=== PATIENT | female | born 1955 | race Caucasian/White ===

== ENCOUNTER → 2017-03-05 | Outpatient (CLI) | payer BC ==
[~2017-03-05] MED LIST: ASPI81TA28 PO; B CO PO; CALCTAB5 PO; CHOL2000 PO; COEN1CAP17 PO; FLAX1CAP11 PO; GLC/500 PO; GLUCOSAMINE; LISI-729 PO; MAGN400T6 PO; MELA1TAB5 PO; METF-384 PO; MILK1POW PO; NIAC500T11 PO; OMEG10007 PO; PRMVC; REDCAP2 PO; VITA400C28 PO; [UNRECOGNIZED DRUG - CODE] PO
--- NOTE | 2017-03-05 14:15 | MAMMOGRAPHY REPORT ---
BILATERAL DIGITAL SCREENING MAMMOGRAM TOMOSYNTHESIS WITH CAD: 03/05/2017 CLINICAL HISTORY: Routine screening. Patient has no complaints. TECHNIQUE: Breast tomosynthesis in addition to standard 2D mammography was performed. Current study was also evaluated with a Computer Aided Detection (CAD) system. COMPARISON: Comparison is made to exams dated: 03/01/2016 mammogram, 01/12/2015 mammogram, 01/06/2014 m ammogram, 01/03/2013 mammogram, 01/03/2012 mammogram, and 12/27/2010 mammogram - [facility] er. BREAST COMPOSITION: There are scattered areas of fibroglandular density in both breasts. FINDINGS: There are mild vascular calcifications in both breasts. No suspicious mass, architectural distortion or cluster of suspicious microcalcifications is seen. IMPRESSION: ACR BI-RADS CATEGORY 2: BENIGN There is no mammographic evidence of malignancy. A 1 year screening mammogram is recommended. The pa tient will receive written notification of the results. Approximately 10% of breast cancers are not detected with mammography. A negative mammographic report should not delay biopsy if a clinically suggestive mass is present. Greer Mead M.D. ay/:03/05/2017 08:36:16 Dance Entertainer: Elle INGRAM(Adrian)(Oneil), [facility] letter sent: Normal 1/2 BI-RADS Code: ACR BI-RADS Category 2: Benign
== END | disposition home or self-care (01) ==
LOC: C.MAMM 07:26
PROVIDERS: ATTEND Nurse Practitioner
DX: Z12.31 Encounter for screening mammogram for malignant neoplasm of breast (principal)

== ENCOUNTER 2021-07-10 11:39 | Inpatient (IN) ==
[2021-07-10] MEDS ORDERED: SODIUM CHLORIDE 0.9% 500 ML IV SCH (12:45)
[2021-07-10] MEDS ORDERED: SODIUM CHLORIDE 0.9% 1000ML 1,000 ML IV SCH (12:45)
[2021-07-10 12:50] LABS: Basophils # (auto) 0.01 K/uL (0-0.2); Basophils % (auto) 0.1 %; Eosinophils # (auto) 0.09 K/uL (0-0.5); Eosinophils % (auto) 0.5 %; Hematocrit (blood only) 53.5 % (37-47); Hemoglobin 17.9 g/dL (12.0-16.0); Immature Granulocytes # (auto) 0.05 K/uL (0.00-0.02); Immature Granulocytes % (auto) 0.3 %; Lymphocytes # (auto) 1.37 K/uL (1.2-3.4); Mean Corpuscular Hemoglobin 31.7 pg (25-34); Mean Corpuscular Hgb Conc 33.5 g/dL (32-36); Mean Corpuscular Volume 94.7 fL (80-100); Mean Platelet Volume 11.2 fL (7.4-10.4); Monocytes # (auto) 0.41 K/uL (0.11-0.59); Monocytes % (auto) 2.4 %; Neutrophils # (auto) 15.27 K/uL (1.4-6.5); Neutrophils % (auto) 88.7 %; Platelet Count 301 K/uL (130-400); RDW Coefficient of Variation 14.7 % (11.5-14.5); Red Blood Count 5.65 M/uL (4.2-5.4)
--- NOTE | 2021-07-10 13:18 | XRay Report ---
XR chest 1V portable CLINICAL HISTORY: syncope TECHNIQUE: Single frontal radiograph of the chest was obtained. Comparison: None available at the time of this dictation. FINDINGS: No lines and tubes are seen. Calcified aortic knob is seen. The lungs are clear. No evidence of pleur al effusion or pneumothorax. IMPRESSION: No acute chest disease. ACT 112: Negative or not required by law. Electronically signed by: Gregorio Dutta M.D. 07/10/2021 1:17 PM
[2021-07-10 13:23] LABS: Alanine Aminotransferase 19 U/L (7-52); Albumin Globulin Ratio 1.6 (0.9-2); Albumin Level 3.9 gm/dl (3.4-5.0); Alkaline Phosphatase 48 U/L (34-104); BUN Creatinine Ratio 12.6 (10-20); Bilirubin,Total 0.5 mg/dl (0.2-1.0); Blood Urea Nitrogen 15 mg/dl (6-23); Calcium 9.8 mg/dl (8.5-10.1); Carbon Dioxide 25 mmol/L (21-32); Chloride 104 mmol/L (98-107); Creatinine Clr Calc Pharmacy 57.4 ml/min; Est GFR (African American) 56.3 ml/min; Est GFR (Non-African American) 48.5 ml/min; Globulin 2.5 gm/dl (2.5-4.0); Glucose 184 mg/dl (70-99(Fasting)); Total Protein 6.4 gm/dl (6.0-8.3); Troponin I 0.04 ng/ml (0-0.04)
--- NOTE | 2021-07-10 13:39 | CT Scan Report ---
CT head/brain wo con CLINICAL HISTORY: syncope, fall Technique: Contiguous axial CT images of the head were acquired from the base of the skull to the mathew lino without intravenous contrast administration. Images were viewed in brain, subdural and [facility]. Automated dose lowering techniques and/or adjustment according to patient size were utilized for this exam. Comparison: None available at the time of this dictation. Findings: The ventricles, basal cisterns, and cerebral sulci are normal. There is no acute intracranial hemorrh age or evidence of acute territorial infarction. Neither mass effect, shift of the midline structures , nor abnormal extra-axial fluid collections are shown. Imaged portions of the paranasal sinuses and mastoid air cells are clear. The orbits appear normal. There are no acute fractures of the calvaria or scalp swelling. Impression: No acute intracranial hemorrhage, no evidence of acute territorial infarction or other acute intracra nial disease process. ACT 112: Negative or not required by law. Electronically signed by: Gregorio Dutta M.D. 07/10/2021 1:37 PM
[2021-07-10] MEDS ORDERED: FAMOTIDINE 20MG/5ML IV PUSH IV STA (13:43)
[2021-07-10] MEDS ORDERED: dexAMETHasone**PF** 10 MG/ML VIAL IV ONE (13:43)
[2021-07-10 14:47] LABS: Aspartate Aminotransferase 14 U/L (13-39); C Reactive Protein < 0.50 mg/dl (0-0.5); Magnesium 1.5 mg/dl (1.7-2.4); Potassium 3.5 mmol/L (3.5-5.1); Sodium 139 mmol/L (136-145)
[2021-07-10] MEDS ORDERED: cefTRIAXone SODIUM 2,000 MG/70 ML BAG IV STA (15:56)
[2021-07-10 16:00] LABS: Appearance Urine Cloudy (Clear); Bacteria Urine Automated Negative (Negative); Bilirubin Urine Negative (Negative); Blood Urine Negative (Negative); Color Urine Dark Yellow; Epithelial Cell Urine Auto >30 /lpf (0-5); Glucose Urine UA Negative (Negative); Ketones Urine Trace (Negative); Leukocyte Esterase Urine Negative (Negative); Nitrite Urine Negative (Negative); Protein Urine 2+ (Negative); Specific Gravity Urine 1.014 (1.000-1.030); Urobilinogen Urine Negative (Negative); pH Urine 6.5 (4.5-7.5)
[2021-07-10 16:01] LABS: D Dimer 19870 ug/L FEU (0-500)
[2021-07-10 16:14] LABS: Calcium Oxalate Crystals Urine Present (None Prsent); Renal Epithelial Cells Urine 0-5 /lpf (0-5)
[2021-07-10] MEDS ORDERED: OPTIRAY 320 125ml IV ONE (17:23)
[2021-07-10] MEDS: MAGNESIUM SULFATE / D5W 1 GM/100 ML BAG IV SCH ×2 (17:29→19:45)
--- NOTE | 2021-07-10 17:42 | CT Scan Report ---
CT angio chest PE protocol CLINICAL HISTORY: syncope, +dimer TECHNIQUE: Multidetector row helical CT of the chest was performed. Coronal and sagittal reformations were obtained. Coronal and sagittal MIPS were obtained from the axial data set and were submitted fo r review. Automated dose lowering techniques and/or adjustment according to patient size were utiliz ed for this exam. Comparison: Comparison is made to chest one view 07/10/2021 FINDINGS: Lungs and pleura: Atelectasis versus scarring is seen in the dependent portions of the lungs. Heart and pericardium: Heart size is normal. No pericardial effusion. Vessels: No evidence of pulmonary embolism. Mild atherosclerotic disease is seen. Mediastinum and sherwin: Esophageal thickening is seen. Chest wall and lower neck: Unremarkable. Abdomen: A hiatal hernia is seen. Bones: Degenerative changes in the thoracic spine. IMPRESSION: 1. No evidence of pulmonary embolism. 2. Esophageal thickening is seen, correlate clinically for esophagitis. ACT 112: Negative or not required by law. Electronically signed by: Gregorio Dutta M.D. 07/10/2021 5:41 PM
--- NOTE | 2021-07-10 17:51 | Emergency Department Note ---
Impression & Plan Syncope and collapse, Acute hypotension, SIRS (systemic inflammatory response syndrome), Elevated d-dimer, Leukocytosis ED Provider Note INFORMANT: Patient and family ED PROVIDER(S): Andrade Chapman MD CHIEF COMPLAINT: Syncope PLAN: Disposition: Admitted Condition: Guarded Outpatient prescription management: none Referral: None MEDICAL DECISION MAKING: The patient presented because of a syncopal episode. She was hypotensive. She also has flushed skin. Allergic history was not really supported. She did receive Benadryl prehospital which helped some with itching but she still had the erythema of her skin. It did not appear to be cellulitic. She had no desquamation. She was hydrated with normal saline. Blood work was obtained. Chest x-ray was unremarkable. Head CT was unremarkable. Urinalysis was not overly convincing for infection. The patient had a significant leukocytosis and an elevated procalcitonin. This did raise concerns for infection. She has no headache, spinal pain, abdominal pain, back pain, skin changes, complaints or other issues. Additional blood work is ordered. Patient's ECG and cardiac monitoring showed ectopy but no ischemia or dysrhythmia. Given the findings that were concerning for SIRS blood cultures and urine culture were ordered. The patient was given an empiric dose of Rocephin. A D-dimer was performed and was significantly elevated. The patient was not having any chest pain or shortness of breath however a CT scan of the chest was performed in light of the tachycardia, hypotension or syncope. This was negative for thromboembolic disease. Reassessment the patient's vital signs did improve. Further management and evaluation in the hospital will be necessary. Consultation was placed with the [facility] service. Patient was evaluated in the ER and admitted for further management. Triage Nursing notes reviewed and agree them. Vital Signs: reviewed and remarkable for hypotension and tachycardia Differential diagnosis: Vasovagal event, dehydration, infection, hypoglycemia, electrolyte abnormalities, cardiac sources, intracerebral event, pulmonary embolism, seizure, toxicologic, neurologic, as well as other pathologies. Diagnostics interpreted by me: ECG: Twelve-lead ECG reveals sinus tachycardia with PVCs at 113 bpm. Bilateral enlargement present. No ST elevation or depression. No pericarditis. Normal axis. Cardiac Monitoring: Cardiac monitoring ordered by me: The patient was placed on continuous cardiac monitoring and observed. It revealed a sinus tachycardic rhythm at 104 beats per minute without ectopy or evidence of dysrhythmia. Imaging studies: Chest x-ray and CT scans as above. HPI: The patient is a 65 year old female who presents to the Emergency Room with complaints of syncope. This started this morning and is described as a minute long event per the . Patient states that over the last several days she has had transient episodes of dizziness when she woke up in the morning but that was resolved. Today did not resolve. She was not feeling well. She had a syncopal episode. She did have loss of control of her bowel and bladder. states no seizure-like activity. She was feeling itchy afterwards. The patient had redness of the skin. The patient also notes the following associated symptoms, generalized weakness and fatigue. The patient has been given 50 mg of Benadryl by EMSrelieving factors. Current pain is rated as 0/10. No prior history of the same. No recent travel. No sick contacts. Pt denies headache, fevers, chills, sore throat, sinus congestion, diaphoresis, visual changes, neck pain, chest pain, breathing difficulties, nausea, vomiting, abdominal pain, back pain, melena, hematochezia, urinary symptoms, numbness, lymphadenopathy, rash, or other complaints. ROS: See above HPI for pertinent positives & negatives. A total of 10 systems reviewed and were otherwise negative. PAST MEDICAL HISTORY:See Below , diabetes PAST SURGICAL HISTORY:See Below, FAMILY HISTORY:See Below SOCIAL HISTORY:See Below, HOME MEDICATIONS:See Below ALLERGIES:See Below VITALS:See Below PHYSICAL EXAMINATION: GENERAL: Awake, alert, uncomfortable-appearing, in no distress HENT: Normocephalic, atraumatic. Oropharynx unremarkable. EYES: Normal conjunctiva. Sclera non-icteric. NECK: Inspection normal. Non-tender. Supple. No nuchal rigidity. FROM. No masses. RESPIRATORY: Clear to auscultation. No wheezes. No rales. Normal respiratory effort. CARDIAC: Tachycardic rate. Normal rhythm. No murmurs. No rubs. Extremities warm and well perfused. Pulses equal. No JVD. GI: Soft, non-distended. No tenderness to palpation. No rebound or guarding. No masses. RECTAL: Deferred. MUSCULOSKELETAL: Atraumatic. Chest examination reveals no tenderness. The back is symmetrical on inspection without obvious abnormality. There is no CVA tenderness to palpation. No joint edema. LOWER EXTREMITIES: Calves are equal size bilaterally and non-tender. No edema. No discoloration. NEURO: Normal sensorium. No sensory or motor deficits noted. SKIN: Diffuse erythroderma of the trunk and proximal upper extremities. No petechiae, purpura, urticaria, desquamation, or jaundice noted. CRITICAL CARE: I have personally spent greater than 45 minutes of critical care time in the direct management of this patient. This includes bedside care, interpretation of diagnostic studies, and testing, discussion with consultants, patient, and family members, and other required patient management activities. These minutes are in excess of all separately billable procedures. Andrade Chapman MD Past Med/Surg History Medical History (Updated 07/10/21 @ 18:25 by RICKIE Vincent) Arthralgia BMI 36.0-36.9,adult Depression Fatigue Hx of renal calculi Knee pain, right Obesity Symptomatic PVCs Surgical History Hx of tubal ligation Family History Brother Myocardial infarction Denies family history of Ovarian cancer Prostate cancer Breast cancer Colorectal cancer Social History Smoking Status: Former smoker Second Hand Exposure: No; Hx Alcohol Use: No Hx Substance Use: No marital status: Single Current Living Situation: Significant Other current occupational status: employed Feels Safe at Home: Yes caffeine: Yes Dental Care, Regularly: Yes Physical Activity Frequency: 5-6 Times per Week Seatbelt Use: always Sunscreen Use: Yes Allergies Allergies Allergy/AdvReac Type Severity Reaction Status Date / Time No Known Allergies AdvReac NONE Unverified 05/09/21 08:18 Home Meds Home Medications Medication Instructions Recorded Confirmed aspirin 81 mg tablet 81 mg PO DAILY tab 04/14/19 07/10/21 cholecalciferol (vitamin D3) 50 2,000 units PO DAILY tab 04/14/19 07/10/21 mcg (2,000 unit) tablet coenzyme Q10 100 mg capsule 100 mg PO DAILY cap 04/14/19 07/10/21 omega-3 acid ethyl esters 1 gram 1 cap PO BID cap 04/14/19 07/10/21 capsule vitamin B complex 1 cap PO DAILY 04/14/19 07/10/21 Previous Rx's Medication Instructions Recorded diltiazem HCl 30 mg tablet 30 mg PO BID #180 tab 08/12/20 metformin 500 mg tablet See Rx Instructions .ROUTE 03/02/21 .COMPLEX #270 tablet lisinopril 10 mg tablet 10 mg PO DAILY #90 tab 03/14/21 atorvastatin 10 mg tablet 10 mg PO DAILY #90 tab 04/07/21 bupropion HCl 100 mg tablet,12 hr 100 mg PO DAILY #90 ea 05/09/21 sustained-release Results & Data (ED) Vital Signs Vital Signs - 24 hr 07/10/21 11:47 07/10/21 12:16 07/10/21 12:50 Temperature 36.8 C Temperature Source Oral Pulse Rate 128 H 116 H Pulse Rate [Apical] 120 H Pulse Rhythm Regular Pulse Rhythm [Apical] Regular Pulse Strength [Apical] Normal Respiratory Rate 18 18 16 Respiratory Effort / Characteristics Non-Labored Respiratory Depth Normal Respiratory Pattern Regular Blood Pressure 110/74 Blood Pressure [Left Arm] 110/74 Blood Pressure Mean 86 Blood Pressure Mean [Left Arm] 86 Blood Pressure Position [Left Arm] Lying Pulse Oximetry 98 96 94 Oxygen Delivery Method Room Air Room Air Room Air Oxygen Flow Rate 0 Sepsis Recent Fever Within 48 Hours No Sepsis New/Unexplained Change in Mental Status No Sepsis Action Taken by Nursing No Action Required 07/10/21 14:00 07/10/21 14:44 07/10/21 16:15 Temperature Temperature Source Pulse Rate Pulse Rate [Apical] 103 H 109 H 100 H Pulse Rhythm Pulse Rhythm [Apical] Regular Regular Regular Pulse Strength [Apical] Normal Normal Normal Respiratory Rate 18 18 18 Respiratory Effort / Characteristics Non-Labored Non-Labored Non-Labored Respiratory Depth Normal Normal Normal Respiratory Pattern Regular Regular Regular Blood Pressure Blood Pressure [Left Arm] 94/68 L 108/80 107/85 Blood Pressure Mean Blood Pressure Mean [Left Arm] 76 89 92 Blood Pressure Position [Left Arm] Lying Lying Lying Pulse Oximetry 95 94 96 Oxygen Delivery Method Room Air Room Air Room Air Oxygen Flow Rate Sepsis Recent Fever Within 48 Hours Sepsis New/Unexplained Change in Mental Status Sepsis Action Taken by Nursing 07/10/21 18:00 Temperature Temperature Source Pulse Rate Pulse Rate [Apical] 90 Pulse Rhythm Pulse Rhythm [Apical] Regular Pulse Strength [Apical] Normal Respiratory Rate 16 Respiratory Effort / Characteristics Non-Labored Respiratory Depth Normal Respiratory Pattern Regular Blood Pressure Blood Pressure [Left Arm] 114/73 Blood Pressure Mean Blood Pressure Mean [Left Arm] 86 Blood Pressure Position [Left Arm] Lying Pulse Oximetry 94 Oxygen Delivery Method Room Air Oxygen Flow Rate Sepsis Recent Fever Within 48 Hours Sepsis New/Unexplained Change in Mental Status Sepsis Action Taken by Nursing Laboratory Data Result diagrams: 07/10/21 12:19 07/10/21 18:14 Lab Results 07/10/21 07/10/21 07/10/21 Range/Units 12:19 12:19 12:19 WBC 17.20 H (4.8-10.8) K/uL RBC 5.65 H (4.2-5.4) M/uL Hgb 17.9 H (12.0-16.0) g/dL Hct 53.5 H (37-47) % MCV 94.7 (80-100) fL MCH 31.7 (25-34) pg MCHC 33.5 (32-36) g/dL RDW Std Deviation 51.0 H (36.4-46.3) fL RDW Coeff of Rick 14.7 H (11.5-14.5) % Plt Count 301 (130-400) K/uL MPV 11.2 H (7.4-10.4) fL Immature Gran % (Auto) 0.3 % Neut % (Auto) 88.7 % Lymph % (Auto) 8.0 % Phelps % (Auto) 2.4 % Eos % (Auto) 0.5 % Baso % (Auto) 0.1 % Neut # (Auto) 15.27 H (1.4-6.5) K/uL Lymph # (Auto) 1.37 (1.2-3.4) K/uL Phelps # (Auto) 0.41 (0.11-0.59) K/uL Eos # (Auto) 0.09 (0-0.5) K/uL Baso # (Auto) 0.01 (0-0.2) K/uL Immature Gran # (Auto) 0.05 H (0.00-0.02) K/uL ESR (0-30) mm/hr D-Dimer (0-500) ug/L FEU Sodium (136-145) mmol/L Potassium (3.5-5.1) mmol/L Chloride 104 (98-107) mmol/L Carbon Dioxide 25 (21-32) mmol/L Anion Gap TNP BUN 15 (6-23) mg/dl Creatinine 1.19 (0.6-1.2) mg/dl Est Cr Clr Drug Dosing 57.4 ml/min Est GFR ( Amer) 56.3 ml/min Est GFR (Non-Af Amer) 48.5 ml/min BUN/Creatinine Ratio 12.6 (10-20) Glucose 184 H (70-99(Fasting)) mg/dl Lactate (0.4-2.0) mmol/L Calcium 9.8 (8.5-10.1) mg/dl Magnesium (1.7-2.4) mg/dl Total Bilirubin 0.5 (0.2-1.0) mg/dl AST (13-39) U/L ALT 19 (7-52) U/L Alkaline Phosphatase 48 (34-104) U/L Troponin I 0.04 (0-0.04) ng/ml C-Reactive Protein (0-0.5) mg/dl Total Protein 6.4 (6.0-8.3) gm/dl Albumin 3.9 (3.4-5.0) gm/dl Globulin 2.5 (2.5-4.0) gm/dl Albumin/Globulin Ratio 1.6 (0.9-2) Procalcitonin (0-0.5) ng/ml TSH 4.178 (0.300-4.500) uIu/ml Urine Color Urine Appearance (Clear) Urine pH (4.5-7.5) Ur Specific W[place]rop (1.000-1.030) Urine Protein (Negative) Urine Glucose (UA) (Negative) Urine Ketones (Negative) Urine Blood (Negative) Urine Nitrite (Negative) Urine Bilirubin (Negative) Urine Urobilinogen (Negative) Ur Leukocyte Esterase (Negative) Urine WBC (Auto) (0-5) /hpf Urine RBC (Auto) (0-4) /hpf U Hyaline Cast (Auto) (0-5) /lpf U Epithel Cells (Auto) (0-5) /lpf Urine Bacteria (Auto) (Negative) Ur Renal Epithelial Cell (0-5) /lpf Urine Crystals Calcium Oxalate Crystal (None Prsent) Granular Casts (0) /lpf SARS-CoV-2, RNA, NAAT (NEGATIVE) 07/10/21 07/10/21 07/10/21 Range/Units 12:19 12:19 14:16 WBC (4.8-10.8) K/uL RBC (4.2-5.4) M/uL Hgb (12.0-16.0) g/dL Hct (37-47) % MCV (80-100) fL MCH (25-34) pg MCHC (32-36) g/dL RDW Std Deviation (36.4-46.3) fL RDW Coeff of Rick (11.5-14.5) % Plt Count (130-400) K/uL MPV (7.4-10.4) fL Immature Gran % (Auto) % Neut % (Auto) % Lymph % (Auto) % Phelps % (Auto) % Eos % (Auto) % Baso % (Auto) % Neut # (Auto) (1.4-6.5) K/uL Lymph # (Auto) (1.2-3.4) K/uL Phelps # (Auto) (0.11-0.59) K/uL Eos # (Auto) (0-0.5) K/uL Baso # (Auto) (0-0.2) K/uL Immature Gran # (Auto) (0.00-0.02) K/uL ESR 11 (0-30) mm/hr D-Dimer 35536 H* (0-500) ug/L FEU Sodium 139 (136-145) mmol/L Potassium 3.5 (3.5-5.1) mmol/L Chloride (98-107) mmol/L Carbon Dioxide (21-32) mmol/L Anion Gap BUN (6-23) mg/dl Creatinine (0.6-1.2) mg/dl Est Cr Clr Drug Dosing ml/min Est GFR ( Amer) ml/min Est GFR (Non-Af Amer) ml/min BUN/Creatinine Ratio (10-20) Glucose (70-99(Fasting)) mg/dl Lactate (0.4-2.0) mmol/L Calcium (8.5-10.1) mg/dl Magnesium 1.5 L (1.7-2.4) mg/dl Total Bilirubin (0.2-1.0) mg/dl AST 14 (13-39) U/L ALT (7-52) U/L Alkaline Phosphatase (34-104) U/L Troponin I (0-0.04) ng/ml C-Reactive Protein < 0.50 (0-0.5) mg/dl Total Protein (6.0-8.3) gm/dl Albumin (3.4-5.0) gm/dl Globulin (2.5-4.0) gm/dl Albumin/Globulin Ratio (0.9-2) Procalcitonin (0-0.5) ng/ml TSH (0.300-4.500) uIu/ml Urine Color Urine Appearance (Clear) Urine pH (4.5-7.5) Ur Specific W[place]rop (1.000-1.030) Urine Protein (Negative) Urine Glucose (UA) (Negative) Urine Ketones (Negative) Urine Blood (Negative) Urine Nitrite (Negative) Urine Bilirubin (Negative) Urine Urobilinogen (Negative) Ur Leukocyte Esterase (Negative) Urine WBC (Auto) (0-5) /hpf Urine RBC (Auto) (0-4) /hpf U Hyaline Cast (Auto) (0-5) /lpf U Epithel Cells (Auto) (0-5) /lpf Urine Bacteria (Auto) (Negative) Ur Renal Epithelial Cell (0-5) /lpf Urine Crystals Calcium Oxalate Crystal (None Prsent) Granular Casts (0) /lpf SARS-CoV-2, RNA, NAAT (NEGATIVE) 07/10/21 07/10/21 07/10/21 Range/Units 14:16 15:42 16:10 WBC (4.8-10.8) K/uL RBC (4.2-5.4) M/uL Hgb (12.0-16.0) g/dL Hct (37-47) % MCV (80-100) fL MCH (25-34) pg MCHC (32-36) g/dL RDW Std Deviation (36.4-46.3) fL RDW Coeff of Rick (11.5-14.5) % Plt Count (130-400) K/uL MPV (7.4-10.4) fL Immature Gran % (Auto) % Neut % (Auto) % Lymph % (Auto) % Phelps % (Auto) % Eos % (Auto) % Baso % (Auto) % Neut # (Auto) (1.4-6.5) K/uL Lymph # (Auto) (1.2-3.4) K/uL Phelps # (Auto) (0.11-0.59) K/uL Eos # (Auto) (0-0.5) K/uL Baso # (Auto) (0-0.2) K/uL Immature Gran # (Auto) (0.00-0.02) K/uL ESR (0-30) mm/hr D-Dimer (0-500) ug/L FEU Sodium (136-145) mmol/L Potassium (3.5-5.1) mmol/L Chloride (98-107) mmol/L Carbon Dioxide (21-32) mmol/L Anion Gap BUN (6-23) mg/dl Creatinine (0.6-1.2) mg/dl Est Cr Clr Drug Dosing ml/min Est GFR ( Amer) ml/min Est GFR (Non-Af Amer) ml/min BUN/Creatinine Ratio (10-20) Glucose (70-99(Fasting)) mg/dl Lactate (0.4-2.0) mmol/L Calcium (8.5-10.1) mg/dl Magnesium (1.7-2.4) mg/dl Total Bilirubin (0.2-1.0) mg/dl AST (13-39) U/L ALT (7-52) U/L Alkaline Phosphatase (34-104) U/L Troponin I (0-0.04) ng/ml C-Reactive Protein (0-0.5) mg/dl Total Protein (6.0-8.3) gm/dl Albumin (3.4-5.0) gm/dl Globulin (2.5-4.0) gm/dl Albumin/Globulin Ratio (0.9-2) Procalcitonin 1.39 H (0-0.5) ng/ml TSH (0.300-4.500) uIu/ml Urine Color Dark Yellow Urine Appearance Cloudy A (Clear) Urine pH 6.5 (4.5-7.5) Ur Specific [place]rop 1.014 (1.000-1.030) Urine Protein 2+ H (Negative) Urine Glucose (UA) Negative (Negative) Urine Ketones Trace H (Negative) Urine Blood Negative (Negative) Urine Nitrite Negative (Negative) Urine Bilirubin Negative (Negative) Urine Urobilinogen Negative (Negative) Ur Leukocyte Esterase Negative (Negative) Urine WBC (Auto) 5-10 H (0-5) /hpf Urine RBC (Auto) 10-30 H (0-4) /hpf U Hyaline Cast (Auto) 5-10 H (0-5) /lpf U Epithel Cells (Auto) >30 H (0-5) /lpf Urine Bacteria (Auto) Negative (Negative) Ur Renal Epithelial Cell 0-5 (0-5) /lpf Urine Crystals Not Reportable Calcium Oxalate Crystal Present A (None Prsent) Granular Casts 1-5 H (0) /lpf SARS-CoV-2, RNA, NAAT NEGATIVE (NEGATIVE) 07/10/21 07/10/21 Range/Units 18:14 18:14 WBC (4.8-10.8) K/uL RBC (4.2-5.4) M/uL Hgb (12.0-16.0) g/dL Hct (37-47) % MCV (80-100) fL MCH (25-34) pg MCHC (32-36) g/dL RDW Std Deviation (36.4-46.3) fL RDW Coeff of Rick (11.5-14.5) % Plt Count (130-400) K/uL MPV (7.4-10.4) fL Immature Gran % (Auto) % Neut % (Auto) % Lymph % (Auto) % Phelps % (Auto) % Eos % (Auto) % Baso % (Auto) % Neut # (Auto) (1.4-6.5) K/uL Lymph # (Auto) (1.2-3.4) K/uL Phelps # (Auto) (0.11-0.59) K/uL Eos # (Auto) (0-0.5) K/uL Baso # (Auto) (0-0.2) K/uL Immature Gran # (Auto) (0.00-0.02) K/uL ESR (0-30) mm/hr D-Dimer (0-500) ug/L FEU Sodium 136 (136-145) mmol/L Potassium 3.9 (3.5-5.1) mmol/L Chloride 109 H (98-107) mmol/L Carbon Dioxide 21 (21-32) mmol/L Anion Gap 6 BUN 16 (6-23) mg/dl Creatinine 0.98 (0.6-1.2) mg/dl Est Cr Clr Drug Dosing 69.7 ml/min Est GFR ( Amer) 71.2 ml/min Est GFR (Non-Af Amer) 61.4 ml/min BUN/Creatinine Ratio 16.3 (10-20) Glucose 143 H (70-99(Fasting)) mg/dl Lactate 1.0 (0.4-2.0) mmol/L Calcium 8.7 (8.5-10.1) mg/dl Magnesium (1.7-2.4) mg/dl Total Bilirubin (0.2-1.0) mg/dl AST (13-39) U/L ALT (7-52) U/L Alkaline Phosphatase (34-104) U/L Troponin I (0-0.04) ng/ml C-Reactive Protein (0-0.5) mg/dl Total Protein (6.0-8.3) gm/dl Albumin (3.4-5.0) gm/dl Globulin (2.5-4.0) gm/dl Albumin/Globulin Ratio (0.9-2) Procalcitonin (0-0.5) ng/ml TSH (0.300-4.500) uIu/ml Urine Color Urine Appearance (Clear) Urine pH (4.5-7.5) Ur Specific [place] (1.000-1.030) Urine Protein (Negative) Urine Glucose (UA) (Negative) Urine Ketones (Negative) Urine Blood (Negative) Urine Nitrite (Negative) Urine Bilirubin (Negative) Urine Urobilinogen (Negative) Ur Leukocyte Esterase (Negative) Urine WBC (Auto) (0-5) /hpf Urine RBC (Auto) (0-4) /hpf U Hyaline Cast (Auto) (0-5) /lpf U Epithel Cells (Auto) (0-5) /lpf Urine Bacteria (Auto) (Negative) Ur Renal Epithelial Cell (0-5) /lpf Urine Crystals Calcium Oxalate Crystal (None Prsent) Granular Casts (0) /lpf SARS-CoV-2, RNA, NAAT (NEGATIVE) Administered Medications Sodium Chloride (Nss 1000ml) 1,000 mls @ 125 mls/hr IV .Q8H CHELLY Stop: 07/10/21 20:44 Last Infusion: 07/10/21 13:57 Dose: 125 mls/hr Documented by: [id number] Admin: 07/10/21 13:48 Dose: 125 mls/hr Documented by: [id number] Magnesium Sulfate/Dextrose (Magnesium Sulfate / D5w) 1 gm in 100 mls @ 50 mls/hr IV Q2H CHELLY Stop: 07/10/21 23:11 Last Admin: 07/10/21 17:29 Dose: 50 mls/hr Documented by: [id number] Discontinued Medications Dexamethasone Sodium Phosphate (DexamethasonePf 10 Mg/Ml Vial) 10 mg IV NOW ONE Stop: 07/10/21 13:44 Last Admin: 07/10/21 13:48 Dose: 10 mg Documented by: [id number] Famotidine (Famotidine 20mg/5ml Iv Push) 20 mg IV ONE STA Stop: 07/10/21 13:44 Last Admin: 07/10/21 13:48 Dose: 20 mg Documented by: [id number] Sodium Chloride (Nss) 500 mls @ 999 mls/hr IV .Q31M CHELLY Stop: 07/10/21 13:15 Last Infusion: 07/10/21 14:07 Dose: 0 mls/hr Documented by: [id number] Admin: 07/10/21 13:00 Dose: 999 mls/hr Documented by: [id number] Ceftriaxone Sodium (Rocephin) 2,000 mg in 70 mls @ 140 mls/hr IV NOW STA Stop: 07/10/21 16:25 Last Infusion: 07/10/21 16:37 Dose: 0 mls/hr Documented by: [id number] Admin: 07/10/21 16:08 Dose: 140 mls/hr Documented by: [id number] Ioversol (Optiray 320 125ml) 120 ml IV ONCE ONE Stop: 07/10/21 17:24 Last Admin: 07/10/21 17:24 Dose: 120 ml Documented by: [id number] Imaging Data Radiologist's Impression: Chest X-Ray 07/10/21 12:42 XR chest 1V portable CLINICAL HISTORY: syncope TECHNIQUE: Single frontal radiograph of the chest was obtained. Comparison: None available at the time of this dictation. FINDINGS: No lines and tubes are seen. Calcified aortic knob is seen. The lungs are clear. No evidence of pleural effusion or pneumothorax. IMPRESSION: No acute chest disease. ACT 112: Negative or not required by law. Electronically signed by: Gregorio Dutta M.D. 07/10/2021 1:[address] 07/10/21 12:42 CT head/brain wo con CLINICAL HISTORY: syncope, fall Technique: Contiguous axial CT images of the head were acquired from the base of the skull to the vertex without intravenous contrast administration. Images were viewed in brain, subdural and bone windows. Automated dose lowering techniques and/or adjustment according to patient size were utilized for this exam. Comparison: None available at the time of this dictation. Findings: The ventricles, basal cisterns, and cerebral sulci are normal. There is no acute intracranial hemorrhage or evidence of acute territorial infarction. Neither mass effect, shift of the midline structures, nor abnormal extra-axial fluid collections are shown. Imaged portions of the paranasal sinuses and mastoid air cells are clear. The orbits appear normal. There are no acute fractures of the calvaria or scalp swelling. Impression: No acute intracranial hemorrhage, no evidence of acute territorial infarction or other acute intracranial disease process. ACT 112: Negative or not required by law. Electronically signed by: Gregorio Dutta M.D. 07/10/2021 1:37 PM Chest CTA 07/10/21 16:08 CT angio chest PE protocol CLINICAL HISTORY: syncope, +dimer TECHNIQUE: Multidetector row helical CT of the chest was performed. Coronal and sagittal reformations were obtained. Coronal and sagittal MIPS were obtained from the axial data set and were submitted for review. Automated dose lowering techniques and/or adjustment according to patient size were utilized for this exam. Comparison: Comparison is made to chest one view 07/10/2021 FINDINGS: Lungs and pleura: Atelectasis versus scarring is seen in the dependent portions of the lungs. Heart and pericardium: Heart size is normal. No pericardial effusion. Vessels: No evidence of pulmonary embolism. Mild atherosclerotic disease is seen. Mediastinum and sherwin: Esophageal thickening is seen. Chest wall and lower neck: Unremarkable. Abdomen: A hiatal hernia is seen. Bones: Degenerative changes in the thoracic spine. IMPRESSION: 1. No evidence of pulmonary embolism. 2. Esophageal thickening is seen, correlate clinically for esophagitis. ACT 112: Negative or not required by law. Electronically signed by: Gregorio Dutta M.D. 07/10/2021 5:41 PM Discharge Plan Visit Data Chief Complaint: Dizziness ED Provider: Andrade Chapman Discharge Problem: Syncope and collapse, Acute hypotension, SIRS (systemic inflammatory response syndrome), Elevated d-dimer, Leukocytosis Forms Stand Alone Forms: My [facility] [employer] Prescriptions Prescriptions: No Action diltiazem HCl 30 mg tablet 30 mg PO BID Qty: 180 RF: 3 metformin 500 mg tablet See Rx Instructions .ROUTE .COMPLEX Qty: 270 RF: 3 lisinopril 10 mg tablet 10 mg PO DAILY Qty: 90 RF: 3 atorvastatin 10 mg tablet 10 mg PO DAILY Qty: 90 RF: 3 cholecalciferol (vitamin D3) 2,000 unit tablet 2,000 units PO DAILY RF: 0 omega-3 acid ethyl esters 1 gram capsule 1 cap PO BID RF: 0 coenzyme Q10 100 mg capsule 100 mg PO DAILY RF: 0 aspirin 81 mg tablet 81 mg PO DAILY RF: 0 vitamin B complex capsule 1 cap PO DAILY RF: 0 bupropion HCl 100 mg tablet sustained-release 12 hr 100 mg PO DAILY Qty: 90 RF: 3 Referrals Referrals: Bouchra Figueroa CRNP [Primary Care Provider] -
--- NOTE | 2021-07-10 18:42 | History & Physical Report ---
Date of Service July 10, 2021 Assessment & Plan (1) Syncope and collapse: Plan: Initial eppisode today- has not had this occur prior - DDX: Cardiogenic/dysrhythmia vs. sepsis vs. neurogenic(seizure) vs. medication related (bupropion) - CT of head negative on admission - CTA chest negative NO Pulmonary embolism - PVC on telemetry and ECG with prolonged QTc - hypomag- replete and follow Qtc - ECHO in morning - Seizure possible however description of event- less likely with normal head CT- consider MRI following initial workup - Normal HCO3 with no further evidence of organ dysfunction - Troponin negative- however will trend out as this is early in her presentation - Oxylate cyrstal in urine ? passing of stone- however no other sx (2) Acute hypotension: Plan: Associated with warm and flushing skin - As above - Monitor on telemetry - Continue with volume resusc - Hold Bupropion- restart per rounding team - Await blood culture and urine culture (3) SIRS (systemic inflammatory response syndrome): Plan: As above - Continue to search for underlying cause/infection - Continue Rocephin emperic coverage - Follow WBC and PCT - Possible that WBC and NLR elevation are from stress response following event - PCT currently with no source/other cause of elevation (4) Leukocytosis: Plan: As above (5) Hypertension: Plan: Continue Thiago and Dilt (6) Symptomatic PVCs: Plan: Continue her Diltiazem - ? arrythmia with PVC/PAC and hypomag - Replete mag- follow QTC - No ischemia noted on ECG/Trop negative- follow Troponin - No known CAD- cath in 2014 (7) Hyperlipidemia: Plan: Initiated on Statin therapy in May 17 - Continue atorvastatin (8) DM II (diabetes mellitus, type II), controlled: Plan: Hold Metformin - Aspart sliding scale CF 20 without carb ratio for now - HGB A1C in morning History of Present Illness Primary Care Provider: RICKIE Garrison 65 YOF with past medical history of: Obesity, Depression, dyspnea, PVC/PAC. Patient was brought to the EMD today via EMS after passing out this morning with loss of bowel and bladder. Patient reports that for the past 2 weeks she has been having "spells" that are initiated with palpitations in her chest and progress to dizziness with some blurry vision. The palpitations she describes as fluttering, they are not associated with any chest pain, or shortness of breath. This morning however was associated with shortness of breath. She also denies any illness or viral prodrome, no urinary symptoms or flank pain. They have never made her pass out and resolve on their own usually by sitting down. This morning the symptoms were prolonged so she was going to go back to bed, her that is accompanying her says she was sitting on the edge of the bed and then went backwards and was disoriented for short time after, she was noted to be pale and diaphoretic upon awakening. There was no shaking of her body or any vomiting. EMS was notified and review of their information was concern for red, warm, skin that was itchy along what appears is chest and arms. She was noted to be normothermic upon arrival, but remained tachycardic (128) and hypotensive (94/68). She had sepsis workup initiated to include Blood and Urine cultures, basic metabolic pane, CBC, and d-dimer. Her d- dimer came back elevated and she then had a CTA of her chest performed that was negative for PE or intrapulmonary process. Her urine is remarkable for calcium oxylate crystals, protein 2+, WBC 5-10, RBC 10-30, and hyaline casts- but no bacteria and >30 Epithelial cells. Her WBC is elevated as well as NLR, PCT 1.32 with normal CRP She was initiated on Rocephin. She was also noted to have low magnesium so replacement for that has started. Her Troponin I was negative. Patient will be admitted to Telemetry to follow her rhythm. Overall now patient reports feeling well. She does endorse feeling more anxious lately. She has had her Bupropion increased, but this was done in April and she has been on that dose since then. She does note endorse taking any more than prescribed and her mentation at this time is clear. Her also endorses that up until this morning she has been normal at home without any deficits or mental changes. She describes the palptiationi s Patient endorses that she was evaluated by cardiology in the past for palpitations and shortness of breath. She had a cath done in 2014, following an abnormal stress test, that was without CAD or noted aortic stenosis. She has had her COVID vaccines and her COVID test on admission is: NEGATIVE Allergies Allergy/AdvReac Type Severity Reaction Status Date / Time No Known Allergies AdvReac NONE Unverified 05/09/21 08:18 Home Medications Medication Instructions Recorded Confirmed Type aspirin 81 mg tablet 81 mg PO DAILY tab 04/14/19 07/10/21 History cholecalciferol (vitamin D3) 50 2,000 units PO DAILY tab 04/14/19 07/10/21 History mcg (2,000 unit) tablet coenzyme Q10 100 mg capsule 100 mg PO DAILY cap 04/14/19 07/10/21 History omega-3 acid ethyl esters 1 gram 1 cap PO BID cap 04/14/19 07/10/21 History capsule vitamin B complex 1 cap PO DAILY 04/14/19 07/10/21 History diltiazem HCl 30 mg tablet 30 mg PO BID #180 tab 08/12/20 07/10/21 Rx metformin 500 mg tablet See Rx Instructions .ROUTE 03/02/21 07/10/21 Rx .COMPLEX #270 tablet lisinopril 10 mg tablet 10 mg PO DAILY #90 tab 03/14/21 07/10/21 Rx atorvastatin 10 mg tablet 10 mg PO DAILY #90 tab 04/07/21 07/10/21 Rx bupropion HCl 100 mg tablet,12 hr 100 mg PO DAILY #90 ea 05/09/21 07/10/21 Rx sustained-release Past Med/Surg History Medical History (Updated 07/10/21 @ 18:25 by RICKIE Vincent) Arthralgia BMI 36.0-36.9,adult Depression Fatigue Hx of renal calculi Knee pain, right Obesity Symptomatic PVCs Surgical History Hx of tubal ligation Family History Brother Myocardial infarction Denies family history of Ovarian cancer Prostate cancer Breast cancer Colorectal cancer Social History Smoking Status: Former smoker Second Hand Exposure: No; Do You Dip or Chew Tobacco: No; Tobacco Cessation Education Requested by Patient: No Hx Alcohol Use: Yes Alcohol type: beer and hard liquor Hx Substance Use: No Preferred Language: Amharic Communication Ability: Effective Brusher And Shearer Required: No Beliefs That Will Affect Care: None marital status: Single Current Living Situation: Other Current Living Situation Comment: Roommate current occupational status: employed Other Information That Helps Us Care for You: No Feels Safe at Home: Yes Safety Concerns: Feels Safe At This Time caffeine: Yes Dental Care, Regularly: Yes Physical Activity Frequency: 5-6 Times per Week Seatbelt Use: always Sunscreen Use: Yes Assistive Devices: Glasses Review of Systems Review of Systems: REVIEW OF SYSTEMS: Constitutional: No fever, sweats or chills Eyes: (+) fuzzy vision, No diplopia, no worsening or blurred vision ENT: (+) pulsating in ears this morning, NO change in hearing, no trouble swallowing Respiratory: No cough, sputum, dyspnea at rest or on exertion Cardiovascular: (+) palpitations, No chest pain, tightness Abdomen: No pain, nausea, vomiting, diarrhea or constipation Musculoskeletal: No joint pain, calf pain, swelling Neurologic: No weakness, numbness/tingling, or balance problems Psychiatric: (+) anxiety and depression Skin: (+) erythema and itchiness this morning- resolved Physical Exam Physical Exam: PHYSICAL EXAM: General: awake, alert, no apparent distress Head: Normocephalic, atraumatic ENT: PERRLA, EOMI, no pharyngeal exudate, mucous membranes moist Neuro: AAO x 3, speech clear and appropriate, strength intact bilaterally 5/5, sensation intact and equal all extremities and dermatomes, no pronator drift, no discoordinated movements, no memory recall problems Chest: equal rise and fall of the chest, no accessory muscle use, no heaves or thrills, Clear to auscultation, on room air, Cardiac: Regular rate and rhythm, telemetry reviewed- NSR with PAC and PVCs, skin warm dry, cap refill <3 seconds, peripheral pulses +2 no JVD, no murmur,no edema GI: NABS x 4 quadrants, soft, nontender to palpation, no rebound, guarding or tenderness : Spontaneously voiding, no pain, no CVA tenderness, Extremities: Normal inspection, no peripheral edema or erythema, calfs nontender to palpation Psych: Normal mood and affect Skin: no rash or erythema Results & Data Results & Data ([facility]) Vital Signs (Past 12 Hours) Vital Signs Temp Pulse Pulse Resp BP BP Pulse Ox 07/10/21 16:15 100 H 18 107/85 96 07/10/21 14:44 109 H 18 108/80 94 07/10/21 14:00 103 H 18 94/68 L 95 07/10/21 12:50 116 H 16 94 07/10/21 12:16 120 H 18 110/74 96 07/10/21 11:47 36.8 C 128 H 18 110/74 98 Laboratory Results Abnormal lab results 07/10/21 07/10/21 07/10/21 Range/Units 12:19 12:19 12:19 WBC 17.20 H (4.8-10.8) K/uL RBC 5.65 H (4.2-5.4) M/uL Hgb 17.9 H (12.0-16.0) g/dL Hct 53.5 H (37-47) % RDW Std Deviation 51.0 H (36.4-46.3) fL RDW Coeff of Rick 14.7 H (11.5-14.5) % MPV 11.2 H (7.4-10.4) fL Neut # (Auto) 15.27 H (1.4-6.5) K/uL Immature Gran # (Auto) 0.05 H (0.00-0.02) K/uL D-Dimer 01932 H* (0-500) ug/L FEU Glucose 184 H (70-99(Fasting)) mg/dl Magnesium (1.7-2.4) mg/dl Procalcitonin (0-0.5) ng/ml Urine Appearance (Clear) Urine Protein (Negative) Urine Ketones (Negative) Urine WBC (Auto) (0-5) /hpf Urine RBC (Auto) (0-4) /hpf U Hyaline Cast (Auto) (0-5) /lpf U Epithel Cells (Auto) (0-5) /lpf Calcium Oxalate Crystal (None Prsent) Granular Casts (0) /lpf 07/10/21 07/10/21 07/10/21 Range/Units 14:16 14:16 15:42 WBC (4.8-10.8) K/uL RBC (4.2-5.4) M/uL Hgb (12.0-16.0) g/dL Hct (37-47) % RDW Std Deviation (36.4-46.3) fL RDW Coeff of Rick (11.5-14.5) % MPV (7.4-10.4) fL Neut # (Auto) (1.4-6.5) K/uL Immature Gran # (Auto) (0.00-0.02) K/uL D-Dimer (0-500) ug/L FEU Glucose (70-99(Fasting)) mg/dl Magnesium 1.5 L (1.7-2.4) mg/dl Procalcitonin 1.39 H (0-0.5) ng/ml Urine Appearance Cloudy A (Clear) Urine Protein 2+ H (Negative) Urine Ketones Trace H (Negative) Urine WBC (Auto) 5-10 H (0-5) /hpf Urine RBC (Auto) 10-30 H (0-4) /hpf U Hyaline Cast (Auto) 5-10 H (0-5) /lpf U Epithel Cells (Auto) >30 H (0-5) /lpf Calcium Oxalate Crystal Present A (None Prsent) Granular Casts 1-5 H (0) /lpf Diagnostic Findings Chest X-Ray 07/10/21 12:42 XR chest 1V portable CLINICAL HISTORY: syncope TECHNIQUE: Single frontal radiograph of the chest was obtained. Comparison: None available at the time of this dictation. FINDINGS: No lines and tubes are seen. Calcified aortic knob is seen. The lungs are clear. No evidence of pleural effusion or pneumothorax. IMPRESSION: No acute chest disease. ACT 112: Negative or not required by law. Electronically signed by: Gregorio Dutta M.D. 07/10/2021 1:[address] 07/10/21 12:42 CT head/brain wo con CLINICAL HISTORY: syncope, fall Technique: Contiguous axial CT images of the head were acquired from the base of the skull to the vertex without intravenous contrast administration. Images were viewed in brain, subdural and bone windows. Automated dose lowering techniques and/or adjustment according to patient size were utilized for this exam. Comparison: None available at the time of this dictation. Findings: The ventricles, basal cisterns, and cerebral sulci are normal. There is no acute intracranial hemorrhage or evidence of acute territorial infarction. Neither mass effect, shift of the midline structures, nor abnormal extra-axial fluid collections are shown. Imaged portions of the paranasal sinuses and mastoid air cells are clear. The orbits appear normal. There are no acute fractures of the calvaria or scalp swelling. Impression: No acute intracranial hemorrhage, no evidence of acute territorial infarction or other acute intracranial disease process. ACT 112: Negative or not required by law. Electronically signed by: Gregorio Dutta M.D. 07/10/2021 1:37 PM Chest CTA 07/10/21 16:08 CT angio chest PE protocol CLINICAL HISTORY: syncope, +dimer TECHNIQUE: Multidetector row helical CT of the chest was performed. Coronal and sagittal reformations were obtained. Coronal and sagittal MIPS were obtained from the axial data set and were submitted for review. Automated dose lowering techniques and/or adjustment according to patient size were utilized for this exam. Comparison: Comparison is made to chest one view 07/10/2021 FINDINGS: Lungs and pleura: Atelectasis versus scarring is seen in the dependent portions of the lungs. Heart and pericardium: Heart size is normal. No pericardial effusion. Vessels: No evidence of pulmonary embolism. Mild atherosclerotic disease is seen. Mediastinum and sherwin: Esophageal thickening is seen. Chest wall and lower neck: Unremarkable. Abdomen: A hiatal hernia is seen. Bones: Degenerative changes in the thoracic spine. IMPRESSION: 1. No evidence of pulmonary embolism. 2. Esophageal thickening is seen, correlate clinically for esophagitis. ACT 112: Negative or not required by law. Electronically signed by: Gregorio Dutta M.D. 07/10/2021 5:41 PM Medications Administered Sodium Chloride (Nss 1000ml) 1,000 mls @ 125 mls/hr IV .Q8H CHELLY Stop: 07/10/21 20:44 Last Infusion: 07/10/21 13:57 Dose: 125 mls/hr Documented by: [id number] Admin: 07/10/21 13:48 Dose: 125 mls/hr Documented by: [id number] Magnesium Sulfate/Dextrose (Magnesium Sulfate / D5w) 1 gm in 100 mls @ 50 mls/hr IV Q2H CHELLY Stop: 07/10/21 23:11 Last Admin: 07/10/21 17:29 Dose: 50 mls/hr Documented by: [id number] Discontinued Medications Dexamethasone Sodium Phosphate (DexamethasonePf 10 Mg/Ml Vial) 10 mg IV NOW ONE Stop: 07/10/21 13:44 Last Admin: 07/10/21 13:48 Dose: 10 mg Documented by: [id number] Famotidine (Famotidine 20mg/5ml Iv Push) 20 mg IV ONE STA Stop: 07/10/21 13:44 Last Admin: 07/10/21 13:48 Dose: 20 mg Documented by: [id number] Sodium Chloride (Nss) 500 mls @ 999 mls/hr IV .Q31M CHELLY Stop: 07/10/21 13:15 Last Infusion: 07/10/21 14:07 Dose: 0 mls/hr Documented by: [id number] Admin: 07/10/21 13:00 Dose: 999 mls/hr Documented by: [id number] Ceftriaxone Sodium (Rocephin) 2,000 mg in 70 mls @ 140 mls/hr IV NOW STA Stop: 07/10/21 16:25 Last Infusion: 07/10/21 16:37 Dose: 0 mls/hr Documented by: [id number] Admin: 07/10/21 16:08 Dose: 140 mls/hr Documented by: [id number] Ioversol (Optiray 320 125ml) 120 ml IV ONCE ONE Stop: 07/10/21 17:24 Last Admin: 07/10/21 17:24 Dose: 120 ml Documented by: [id number] Home Medications aspirin 81 mg tablet 81 mg PO DAILY tab 04/14/19 [History Confirmed 07/10/21] cholecalciferol (vitamin D3) 50 mcg (2,000 unit) tablet 2,000 units PO DAILY tab 04/14/19 [History Confirmed 07/10/21] coenzyme Q10 100 mg capsule 100 mg PO DAILY cap 04/14/19 [History Confirmed 07/10/21] omega-3 acid ethyl esters 1 gram capsule 1 cap PO BID cap 04/14/19 [History Confirmed 07/10/21] vitamin B complex 1 cap PO DAILY 04/14/19 [History Confirmed 07/10/21] diltiazem HCl 30 mg tablet 30 mg PO BID #180 tab 08/12/20 [Rx Confirmed 07/10/21] metformin 500 mg tablet See Rx Instructions .ROUTE .COMPLEX #270 tablet 03/02/21 [Rx Confirmed 07/10/21] lisinopril 10 mg tablet 10 mg PO DAILY #90 tab 03/14/21 [Rx Confirmed 07/10/21] atorvastatin 10 mg tablet 10 mg PO DAILY #90 tab 04/07/21 [Rx Confirmed 07/10/21] bupropion HCl 100 mg tablet,12 hr sustained-release 100 mg PO DAILY #90 ea 05/09/21 [Rx Confirmed 07/10/21] Active Medications Sodium Chloride (Nss 1000ml) 1,000 mls @ 125 mls/hr IV .Q8H CHELLY Stop: 07/10/21 20:44 Last Infusion: 07/10/21 13:57 Dose: Infused Documented by: Magnesium Sulfate/Dextrose (Magnesium Sulfate / D5w) 1 gm in 100 mls @ 50 mls/hr IV Q2H CHELLY Stop: 07/10/21 23:11 Last Admin: 07/10/21 17:29 Dose: 50 mls/hr Documented by: [id number] Additional Comments: Sinus tachycardia with frequent Premature ventricular complexes Biatrial enlargement Abnormal ECG When compared with ECG of 28-JUL-1993 15:31, Premature ventricular complexes are now Present Vent. rate has increased BY 38 BPM Code Status & VTE Plan Code Status CODE: FULL VTE: SCDS, Lovenox 40mg SQ daily VTE Prophylaxis Plan VTE Prophylaxis will be ordered: Yes Supervising Physician Co-Signing Physician Notes I supervised RICKIE Johnson on the care of this patient. I interviewed and examined the patient independently of him. The plan is as written in his note except for any following changes/exceptions: None Patient with about a 2-week history of presyncopal episodes around 9:30-10am each morning. Each lasting about 15 minutes to 1 hour with chest palpitations and lightheadedness which resolved with lying down. However, on the morning of presentation, had a more significant episode and after lying down, passed out. found her on the bed, unconscious for about 1 minute. Loss of bowel/bladder, but no shaking or tongue biting. Has hx of PVCs and [place] LHC [place] [address] Viera in 2015 which was normal. At this point, ddx includes arrhythmia, vasovagal syncope, endocrine disorder. Will monitor on telemetry, get echo & cortisol in the AM. PG Care Time/CCT Total # of Minutes Spent Total Time Spent with Patient: Total time spent is greater than 50% in coordination of care (as documented) at patient's floor/unit and/or counseling patient: Coding Level of Care Code 91897 Initial Inpt Care Lvl 3 Diagnoses Syncope and collapse R55 Acute hypotension I95.9 SIRS (systemic inflammatory response syndrome) R65.10 Leukocytosis D72.829 Hypertension I10 Symptomatic PVCs I49.3 Hyperlipidemia E78.5 DM II (diabetes mellitus, type II), controlled E11.9
[2021-07-10 18:54] LABS: BUN Creatinine Ratio 16.3 (10-20); Calcium 8.7 mg/dl (8.5-10.1); Creatinine Clr Calc Pharmacy 69.7 ml/min; Est GFR (African American) 71.2 ml/min; Est GFR (Non-African American) 61.4 ml/min; Potassium 3.9 mmol/L (3.5-5.1)
[2021-07-10] MEDS ORDERED: ONDANSETRON INJ 2 MG/ML 2 ML VIAL IV PRN (21:10)
[2021-07-10] MEDS ORDERED: GLUCOSE 10 TABS/TUBE PO PRN (21:10)
[2021-07-10] MEDS ORDERED: DEXTROSE 50% 50 ML SYRINGE IV PRN (21:10)
[2021-07-10] MEDS ORDERED: CARBOHYDRATES FOR HYPOGLYCEMIA PO PRN (21:10)
[2021-07-10] MEDS ORDERED: GLUCAGON FOR INJ 1 MG VIAL SQ PRN (21:10)
[2021-07-10] MEDS ORDERED: GLUCOSE 40% GEL 15 GM TUBE PO PRN (21:10)
[2021-07-10] MEDS ORDERED: ACETAMINOPHEN 325 MG TAB PO PRN (21:10)
[2021-07-10] MEDS ORDERED: POLYETHYLENE (MIRALAX) 17 GM PACK PO PRN (21:10)
[2021-07-10] MEDS ORDERED: LACTATED RINGER'S 1,000 ML IV ONE (21:10)
[2021-07-10] MEDS ORDERED: ENOXAPARIN INJ 40 MG/0.4 ML SYR SQ SCH (21:30)
[2021-07-10] MEDS: dilTIAZem HCL 30 MG TAB PO SCH (22:02)
[2021-07-10] MEDS: INSULIN ASPART PER UNIT SC SCH (22:38)
[2021-07-11] MEDS: MAGNESIUM SULFATE / D5W 1 GM/100 ML BAG IV SCH (00:14)
[2021-07-11 07:51] LABS: Estimated Average Glucose 120 mg/dl; Hemoglobin A1C 5.8 % (4.5-5.6)
[2021-07-11 08:03] LABS: Hemoglobin 13.7 g/dL (12.0-16.0); Immature Granulocytes # (auto) 0.02 K/uL (0.00-0.02); Immature Granulocytes % (auto) 0.1 %; Lymphocytes # (auto) 1.49 K/uL (1.2-3.4); Lymphocytes % (auto) 10.3 %; Mean Corpuscular Hemoglobin 31.4 pg (25-34); Mean Corpuscular Hgb Conc 33.4 g/dL (32-36); Mean Corpuscular Volume 93.8 fL (80-100); Mean Platelet Volume 10.7 fL (7.4-10.4); Monocytes # (auto) 0.68 K/uL (0.11-0.59); Monocytes % (auto) 4.7 %; Neutrophils # (auto) 12.24 K/uL (1.4-6.5); Neutrophils % (auto) 84.9 %; Platelet Count 286 K/uL (130-400); RDW Coefficient of Variation 14.6 % (11.5-14.5); RDW Standard Deviation 49.9 fL (36.4-46.3); Red Blood Count 4.37 M/uL (4.2-5.4); White Blood Count 14.43 K/uL (4.8-10.8)
[2021-07-11] MEDS: INSULIN ASPART PER UNIT SC SCH ×2 (08:03→12:09)
[2021-07-11] MEDS: dilTIAZem HCL 30 MG TAB PO SCH (08:04)
[2021-07-11 08:13] LABS: Troponin I 0.15 ng/ml (0-0.04)
[2021-07-11 08:31] LABS: Creatinine Clr Calc Pharmacy 91.5 ml/min; Est GFR (African American) 96.8 ml/min; Est GFR (Non-African American) 83.5 ml/min
[2021-07-11 08:34] LABS: Albumin Globulin Ratio 1.7 (0.9-2); Albumin Level 3.8 gm/dl (3.4-5.0); BUN Creatinine Ratio 17.1 (10-20); Bilirubin,Total 0.4 mg/dl (0.2-1.0); Globulin 2.3 gm/dl (2.5-4.0); Potassium 3.9 mmol/L (3.5-5.1); Total Protein 6.1 gm/dl (6.0-8.3)
[2021-07-11] MEDS ORDERED: ATORVASTATIN 10 MG TAB PO SCH (09:00)
[2021-07-11] MEDS ORDERED: ASPIRIN 81 MG ECTAB PO SCH (09:00)
[2021-07-11] MEDS ORDERED: lisinopril 10 MG TAB PO SCH (09:00)
--- NOTE | 2021-07-11 10:53 | XCELERA ---
[id number]
--- NOTE | 2021-07-11 15:25 | Discharge Summary ---
Date of Service July 11, 2021 Admission HPI Per Admitting Provider 65 YOF with past medical history of: Obesity, Depression, dyspnea, PVC/PAC. Patient was brought to the EMD today via EMS after passing out this morning with loss of bowel and bladder. Patient reports that for the past 2 weeks she has been having "spells" that are initiated with palpitations in her chest and progress to dizziness with some blurry vision. The palpitations she describes as fluttering, they are not associated with any chest pain, or shortness of breath. This morning however was associated with shortness of breath. She also denies any illness or viral prodrome, no urinary symptoms or flank pain. They have never made her pass out and resolve on their own usually by sitting down. This morning the symptoms were prolonged so she was going to go back to bed, her that is accompanying her says she was sitting on the edge of the bed and then went backwards and was disoriented for short time after, she was noted to be pale and diaphoretic upon awakening. There was no shaking of her body or any vomiting. EMS was notified and review of their information was concern for red, warm, skin that was itchy along what appears is chest and arms. She was noted to be normothermic upon arrival, but remained tachycardic (128) and hypotensive (94/68). She had sepsis workup initiated to include Blood and Urine cultures, basic metabolic pane, CBC, and d-dimer. Her d- dimer came back elevated and she then had a CTA of her chest performed that was negative for PE or intrapulmonary process. Her urine is remarkable for calcium oxylate crystals, protein 2+, WBC 5-10, RBC 10-30, and hyaline casts- but no bacteria and >30 Epithelial cells. Her WBC is elevated as well as NLR, PCT 1.32 with normal CRP She was initiated on Rocephin. She was also noted to have low magnesium so replacement for that has started. Her Troponin I was negative. Patient will be admitted to Telemetry to follow her rhythm. Overall now patient reports feeling well. She does endorse feeling more anxious lately. She has had her Bupropion increased, but this was done in April and she has been on that dose since then. She does note endorse taking any more than prescribed and her mentation at this time is clear. Her also endorses that up until this morning she has been normal at home without any deficits or mental changes. She describes the palptiationi s Patient endorses that she was evaluated by cardiology in the past for palpitations and shortness of breath. She had a cath done in 2014, following an abnormal stress test, that was without CAD or noted aortic stenosis. She has had her COVID vaccines and her COVID test on admission is: NEGATIVE Principal Diagnosis Syncope Frequent PVCs Discharge Exam Constitutional WD/WN, vitals as above Eyes EOM intact bilaterally; no conjunctival abnormality ENMT external ear and nose normal, oropharynx normal Neck trachea midline, no thyromegaly normal visual inspection Respiratory normal respiratory effort, lungs clear to auscultation no respiratory distress Cardiovascular RRR, no murmur, no edema Gastrointestinal (Abdomen) Inspection/Auscultation: abdomen normal to inspection; abdomen not distended Musculoskeletal no cyanosis or clubbing, extremities motor strength 5/5 Skin no rashes, warm and dry Neurologic moves all extremities and awake Psychiatric Orientation: alert, oriented to person and cooperative Discharge Data Allergies Allergy/AdvReac Type Severity Reaction Status Date / Time No Known Allergies AdvReac NONE Unverified 05/09/21 08:18 Ordered Studies 07/10/21 12:42 CT head/brain wo con Stat 07/10/21 16:08 CT angio chest PE protocol Stat Hospital Course (1) Syncope and collapse: Initial eppisode today- has not had this occur prior - DDX: Cardiogenic/dysrhythmia vs. sepsis vs. neurogenic(seizure) vs. medication related (bupropion) - CT of head negative on admission - CTA chest negative NO Pulmonary embolism - PVC on telemetry and ECG with prolonged QTc - hypomag- replete and follow Qtc - ECHO in morning - Seizure possible however description of event- less likely with normal head CT- consider MRI following initial workup - Normal HCO3 with no further evidence of organ dysfunction - Troponin negative- however will trend out as this is early in her presentation - Oxylate cyrstal in urine ? passing of stone- however no other sx Echo was normal with normal EF, no regional wall motion issues, and normal valves. 1) Seizure and stroke very unlikely given no shaking, prodrome, and no focal motor/sensory deficits. 2) Arrhythmia possible -> She does have frequent PVCs, so is she having some short runs of NSVT causing symptoms? Unclear. 30-day MCOT ordered on discharge. Results to be sent to PCP, and she was encouraged to f/u with cardiology as she'd seen him in the past. 3) She had a low cortisol, but had received dexamethasone in the ER, so endocrinology felt this was likely erroneous. Will get repeat in 2-4 days to ensure no adrenal insufficiency. (2) Acute hypotension: Associated with warm and flushing skin. - As above - Monitor on telemetry - Continue with volume resusc - Hold Bupropion- restart per rounding team - Await blood culture and urine culture (3) SIRS (systemic inflammatory response syndrome): As above - Continue to search for underlying cause/infection - Follow WBC and PCT - Possible that WBC and NLR elevation are from stress response following event - PCT currently with no source/other cause of elevation (4) Leukocytosis: As above (5) Hypertension: Continue Thiago and Dilt (6) Symptomatic PVCs: Continue her Diltiazem - ? arrythmia with PVC/PAC and hypomag - Replete mag- follow QTC - No ischemia noted on ECG/Trop negative- follow Troponin - No known CAD- cath in 2014 -> Holter as above. (7) Hyperlipidemia: Initiated on Statin therapy in May 17 - Continue atorvastatin (8) DM II (diabetes mellitus, type II), controlled: Hold Metformin - Aspart sliding scale CF 20 without carb ratio for now - HGB A1C in morning Total Time Total Time Spent Total Time Spent (In Minutes): 35 Discharge Plan Discharge Items Patient Disposition: Home - Self-Care Reason For Visit: SYNCOPE, HYPOTENSION Discharge Diagnosis: Syncope (passing out), low blood pressure Activity: Resume your previous activity Non-emergency contact: Primary Care Provider and Workforce Management Coordinator Call non-emergency contact if: your symptoms worsen Follow-up/Referrals: Bouchra Figueroa CRNP [Primary Care Provider] - (Please see Ms. Figueroa next week.) Won Viera MD [Physician] - (Please see Dr. Viera in his office in 1-2 weeks for an evaluation of your PVCs.) Diet: Heart Healthy Ambulatory Orders: Basic Metabolic Panel (Routine) Timeframe: 2 Days Location: Determined by Patient Ordered By: Harrison Munguai Complete Blood Count with Diff (Timed) Timeframe: 2 Days Location: Determined by Patient Ordered By: Harrison Munguia Cortisol AM (Routine) Timeframe: 2 Days Location: Determined by Patient Ordered By: Harrison Munguia Add Attending Provider Instructions: Ms. Ponce, You were evaluated in the hospital after an episode of fainting that occurred at home. We have looked at a number of sources: 1) We have monitored your heart during your time here. You are having between 10 - 20 premature beats every minute. This is on the high side and warrants further cardiology review. We have sent a prescription for a 30-day event monitor to the cardiology office, and they will reach out to you on getting that arranged. 2) You had an ultrasound of your heart that showed you have a good heart squeeze. There is no indication of any prior heart attacks. Your heart valves all look healthy. 3) You had a variety of labs. One "stress hormone" lab was off, but Dr. Ventura felt this was probably low due to the steroid you received yesterday. I would like you recheck it this week. Sunday, , or Sunday would be fine. Please come to the lab at [facility] (or your normal lab) as early in the morning as possible, as the test is "time of day" dependant. Before 8:00am is important. Pending Studies at Discharge: No Stand-Alone Forms: My Reelation, Smoking Cessation Medications and DC Order Prescriptions: Continued diltiazem HCl 30 mg tablet 30 mg PO BID Qty: 180 RF: 3 metformin 500 mg tablet See Rx Instructions .ROUTE .COMPLEX Qty: 270 RF: 3 atorvastatin 10 mg tablet 10 mg PO DAILY Qty: 90 RF: 3 cholecalciferol (vitamin D3) 2,000 unit tablet 2,000 units PO DAILY RF: 0 omega-3 acid ethyl esters 1 gram capsule 1 cap PO BID RF: 0 coenzyme Q10 100 mg capsule 100 mg PO DAILY RF: 0 aspirin 81 mg tablet 81 mg PO DAILY RF: 0 vitamin B complex capsule 1 cap PO DAILY RF: 0 bupropion HCl 100 mg tablet sustained-release 12 hr 100 mg PO DAILY Qty: 90 RF: 3 Changed lisinopril 10 mg tablet 10 mg PO HS Qty: 90 RF: 3 Discharge Orders: Discharge Order (Routine); Ordered 07/11/21 Ordered By: Harrison Munguia Admission Data Admit Date/Time: 07/10/21 18:05 Attending Provider: Harrison Munguia Admit Provider: Harrison Munguia Primary Care Provider: Bouchra Figueroa Other Interventions: Discharge Summary Assessment (RN) Last Done: 07/11/21 15:17 Coding Level of Care Code D/C DAY MANAGEMENT >30 MINS Diagnoses Syncope and collapse R55 Acute hypotension I95.9 SIRS (systemic inflammatory response syndrome) R65.10 Leukocytosis D72.829 Hypertension I10 Symptomatic PVCs I49.3 Hyperlipidemia E78.5 DM II (diabetes mellitus, type II), controlled E11.9
[2021-07-11] MEDS ORDERED: cefTRIAXone SODIUM 2,000 MG in DEXTROSE 5% 50 ML IV SCH (20:00)
--- NOTE | 2021-07-11 22:20 | Electrocardiogram Report ---
Test Reason : Blood Pressure : / mmHG Vent. Rate : 113 BPM Atrial Rate : 113 BPM P-R Int : 148 ms QRS Dur : 088 ms QT Int : 368 ms P-R-T Axes : 060 054 055 degrees QTc Int : 504 ms Sinus tachycardia with frequent Premature ventricular complexes and premature atrial complexes Biatrial enlargement Abnormal ECG When compared with ECG of 28-JUL-1993 15:31, Premature ventricular complexes are now Present Vent. rate has increased BY 38 BPM Confirmed by Josemanuel Etienne ([id number]) on 07/11/2021 10:20:16 PM Referred By: REFERRED SELF Confirmed By:Josemanuel Etienne
--- NOTE | 2021-07-11 22:46 | Electrocardiogram Report ---
Test Reason : Blood Pressure : / mmHG Vent. Rate : 080 BPM Atrial Rate : 080 BPM P-R Int : 154 ms QRS Dur : 090 ms QT Int : 414 ms P-R-T Axes : 035 031 054 degrees QTc Int : 477 ms Sinus rhythm with sinus arrhythmia with frequent Premature ventricular complexes Otherwise normal ECG When compared with ECG of 10-JUL-2021 11:58, (unconfirmed) No significant change was found Confirmed by Josemanuel Etienne ([id number]) on 07/11/2021 10:45:31 PM Referred By: REFERRED SELF Confirmed By:Josemanuel Etienne
== END 2021-07-11 16:00 | disposition home or self-care (01) | DRG 312 ==
LOC: ED 11:39 → 2S 18:05